=== PATIENT | female | born 1985 | race African-American/Black ===

== ENCOUNTER 2023-10-07 19:19 | Emergency (ER) | payer OTHER ==
[~2023-10-07] VITALS: Ht 162.6 cm; Wt 63.0 kg
[2023-10-07 21:22] VITALS: BP 121/60; TEMP 98.1; O2SAT 100
== END 2023-10-07 21:22 | disposition home or self-care (01) ==
LOC: ER 19:32
DX: Z71.1 Person with feared health complaint in whom no diagnosis is made (principal); Z60.2 Problems related to living alone